=== PATIENT | male | born 1985 | race Caucasian/White ===

== ENCOUNTER 2017-11-04 23:47 | Emergency (ER) | payer OTHER ==
[~2017-11-04] VITALS: Ht 170.2 cm; Wt 72.6 kg
[2017-11-05] MEDS ORDERED: CEPH500 PO (00:30)
== END 2017-11-05 00:45 | disposition home or self-care (01) ==
LOC: ER 23:47
DX: S61.012A Laceration without foreign body of left thumb without damage to nail, initial encounter (principal); Z88.5 Allergy status to narcotic agent; Z87.442 Personal history of urinary calculi; Z87.891 Personal history of nicotine dependence; W26.8XXA Contact with other sharp object(s), not elsewhere classified, initial encounter; Y99.0 Civilian activity done for income or pay
CPT/HCPCS: 12001; 99283

== ENCOUNTER 2017-11-12 14:00 | Emergency (ER) | payer OTHER ==
[~2017-11-12] VITALS: Ht 170.2 cm; Wt 72.6 kg
[~2017-11-12 14:00] MED LIST: CEPH500 PO
== END 2017-11-12 15:10 | disposition home or self-care (01) ==
LOC: ER 14:00
DX: R51 Headache (principal); Z88.5 Allergy status to narcotic agent; Z87.891 Personal history of nicotine dependence
CPT/HCPCS: 99282